=== PATIENT | female | born 2000 | race Two or more races ===

== ENCOUNTER 2019-06-30 20:07 | Emergency (ER) | payer OTHER, SELFPAY ==
--- NOTE | ~2019-06-30 | XR_ITS ---
EXAMINATION: XR ankle LT min 3V DATE: 06/30/2019 20:57 INDICATION: Left ankle pain and swelling. TECHNIQUE: 4 views of left ankle were obtained. COMPARISON: None. FINDINGS: Bone alignment is normal. No fracture. There is mild osteoarthritis of talonavicular joint. There is ankle soft tissue swelling. IMPRESSION: 1. Mild osteoarthritis of talonavicular joint. Reviewed, dictated and finalized at location A. INE ROOM ATTENDANT
[2019-06-30 20:09] VITALS: BP 137/75; PULSE 112; RESP 20; TEMP 36.7; O2SAT 100
--- NOTE | 2019-06-30 20:46 | ED.LOWEXIN ---
HPI - Extremity Injury (Lower) General Chief Complaint: Extremity Injury, Lower Stated Complaint: L ankle injury Time Seen by Provider: 06/30/19 20:41 Source: patient Mode of arrival: ambulatory Limitations: no limitations History of Present Illness HPI Narrative: This is a 18 year old female that presents to the ER for left ankle pain today. Is unsure of certain injury. Reports she noted some increasing swelling and pain on the lateral side of her ankle. She has been icing and using Epsom salt with little relief. Denies fever, decreased ROM, numbness, erythema or warmth. Related Data Allergies Allergy/AdvReac Type Severity Reaction Status Date / Time No Known Allergies Allergy Unverified 12/22/17 13:06 Review of Systems Review of Systems: Narrative: CONSTITUTIONAL: Denies fever SKIN: Denies rash MUSCULOSKELETAL: Reports joint pain, and myalgia. NEUROLOGIC: Denies numbness All systems reviewed & are unremarkable except as noted in HPI and below PMFSH Surgical History Surgical History (Updated 06/30/19 @ 20:51 by Kika Hand PA-C) History of Social History Social History (Updated 06/30/19 @ 20:50 by Kika Hand PA-C) Smoking status: Current every day smoker Exam Narrative: Exam Narrative: GENERAL: Well-appearing, well-nourished, and in no acute distress. HEAD: Normocephalic, atraumatic. EYES: EOMI. EXTREMITIES: Normal range of motion. Mild swelling about the left lateral malleoli. No erythema or warmth. Normal sensation. Normal DP pulses SKIN: Warm, dry, no rash. NEURO: No focal deficits. Alert and oriented x3. PSYCH: Normal mood and affect Course Vital Signs Vital signs: Vital Signs Temperature 98.1 F 06/30/19 20:09 Pulse Rate 112 H 06/30/19 20:09 Respiratory Rate 20 06/30/19 20:09 Blood Pressure 137/75 06/30/19 20:09 Pulse Oximetry 100 06/30/19 20:09 Temperature 98.1 F 06/30/19 20:09 Pulse Rate 112 H 06/30/19 20:09 Respiratory Rate 20 06/30/19 20:09 Blood Pressure 137/75 06/30/19 20:09 Pulse Oximetry 100 06/30/19 20:09 MDM - Extremity Injury (Lower) MDM Narrative Medical decision making narrative: Patient presents the emergency permit for left ankle pain. No known injury or trauma. Patient is afebrile. No erythema or warmth of the ankle. Left ankle x-rays without acute changes. Patient will be given an Joshua wrap, crutches and was instructed to ice and elevate the extremity. She is to take [id number] pain medication as needed. She is to follow-up with primary care doctor. She was given warnings to return to the ER Imaging Data Radiologist's impression: ITS Impressions Ankle X-Ray 06/30/19 21:07 IMPRESSION: 1. Mild osteoarthritis of talonavicular joint. Critical Care Time Critical Care Time Critical Care Time: No Discharge Plan Discharge Clinical Impression: Acute left ankle pain Patient Disposition: Home, Self-Care Condition: Stable Instructions: Ankle Sprain (ED) Additional Instructions: Return to the emergency department if you experience fever, redness and swelling of your leg, or any other symptoms that are concerning to you Wear JOSHUA wrap and use crutches. No weight on the affected leg until able to bear weight without pain. Ice and elevate extremity. Pain medication as needed and directed. Follow up with your doctor for further care. Follow-up/Referrals: PHYSICIAN,PIN PUSHER [Primary Care Provider] - Hollis Newman MD [Physician] - 1 Week
== END 2019-06-30 21:25 | disposition home or self-care (01) ==
PROVIDERS: Emergency Provider Emergency Medicine
DX: M25.572 Pain in left ankle and joints of left foot (principal); M19.072 Primary osteoarthritis, left ankle and foot; F17.200 Nicotine dependence, unspecified, uncomplicated
CPT/HCPCS: 73610; 99283

== ENCOUNTER 2019-08-04 10:35 | Emergency (ER) | payer OTHER, SELFPAY ==
--- NOTE | ~2019-08-04 | XR_ITS ---
XR abdomen/kub 1V 08/04/2019 11:46 INDICATION: Lower abdomen pain. TECHNIQUE: KUB COMPARISON: None FINDINGS: Bowel gas pattern is normal. There is no evidence of free air, mass, organomegaly, ascites or obstruction. No abnormal calculi are seen. The bones appear intact. IMPRESSION: 1: No acute abdominal abnormality identified. Reviewed, dictated and finalized at location A.
[2019-08-04 11:10] VITALS: BP 130/76; PULSE 95; RESP 20; TEMP 36.9; O2SAT 98
--- NOTE | 2019-08-04 11:16 | ED.GENADULT ---
HPI - General Adult General Chief complaint: Abdominal Pain Stated complaint: lower back pn/urine bleed/cramping Time Seen by Provider: 08/04/19 11:16 Source: patient Mode of arrival: ambulatory Limitations: no limitations History of Present Illness HPI narrative: 18-year-old female patient presents to the [facility] with complaints of low back pain and urinary symptoms. Patient states that she started having some low back pain about a week ago and is gotten increasingly worse and it radiates around the left flank to the left abdomen and down to the left groin. Patient denies any pain with urination. But states that when she did urinate today she did see some pink-tinged urine. Patient states that she thinks that might be her Implanon because she has been had it for about a year and a half but states she has had issues with that here and there. Patient denies any fevers, nausea, vomiting or diarrhea. Related Data Allergies Allergy/AdvReac Type Severity Reaction Status Date / Time No Known Allergies Allergy Unverified 12/22/17 13:06 Review of Systems Review of Systems: Narrative: CONSTITUTIONAL: Denies fever, chills, or sweats. EYES: Denies visual changes, redness, or discharge. ENT: Denies rhinorrhea, congestion, sore throat, or otalgia. CARDIOVASCULAR: Denies chest pain, palpitations, or edema. RESPIRATORY: Denies cough or dyspnea. GASTROINTESTINAL: Positive left flank and left abdominal pain, denies nausea, vomiting, or diarrhea. GENITOURINARY: Denies dysuria or hematuria. SKIN: Denies rash or itching. MUSCULOSKELETAL: Positive low back pain, denies joint pain, or myalgia. NEUROLOGIC: Denies headache, numbness, or weakness. PSYCHIATRIC: Denies anxiety or depression. PMFSH Surgical History Surgical History History of Social History Social History Smoking status: Current every day smoker Comments At the time of my signature I agree with nursing past medical history, surgical, social, and family history. There is no relevant family history pertinent to the presenting complaint. Exam Narrative: Exam Narrative: GENERAL: Well-appearing, well-nourished, and in no acute distress. HEAD: Normocephalic, atraumatic. EYES: PERRLA and EOMI. ENT: Nares clear, no rhinorrhea or epistaxis. Mucous membranes moist. NECK: Supple. No lymphadenopathy CHEST: Clear to auscultation. No respiratory distress. HEART: Regular rate and rhythm. No murmur heard. Normal peripheral pulses. ABDOMEN: Soft, flat, nondistended. No guarding, rebound tenderness, or rigid. No pulsatilla masses. Bowel sounds present in all four quadrants. No organomegaly. Negative Duval?s sign. No periumbicial tenderness. No Supra public tenderness or distension. Good femoral pulses bilaterally. No hernia noted. No scars or surface trauma. No CVA tenderness on percussion EXTREMITIES: Normal range of motion. No edema. SKIN: Warm, dry, no rash. NEURO: No focal deficits. Alert and oriented x3. Course Reevaluation(s) Reevaluation #1: Notify patient that her x-ray is negative for any obvious evidence of stones. Discussed with patient that her urine was really unremarkable for any UTI as well but however we will send the urine off to the lab for testing to make sure that there is no bacteria growing and if there is we will call her with antibiotics at that time. Discussed with patient that since she is really not having a lot of pain when she urinates I do not think that we need to start antibiotics at this time. Discussed with patient that her test was negative today. Discussed with her and asked her if she has tried anything for the pain. Patient states that she has not tried anything for her back pain yet. Discussed with her I would try to do some ibuprofen, Tylenol and maybe heating pad and see if this improves but she will need to follow-up with her
== END 2019-08-04 12:14 | disposition home or self-care (01) ==
PROVIDERS: Emergency Provider Nurse Practitioner Family
DX: M54.5 Low back pain (principal); F17.200 Nicotine dependence, unspecified, uncomplicated
CPT/HCPCS: 74018; 81003; 81025; 87086; 87088; 99213; G0463

== ENCOUNTER 2019-08-05 05:03 | Emergency (ER) | payer OTHER, SELFPAY ==
--- NOTE | ~2019-08-05 | CT_ITS ---
EXAMINATION: CT abdomen pelvis w con DATE: 08/05/2019 06:14 INDICATION: Left lower quadrant pain. Pain radiating to the left flank. Nausea and vomiting. TECHNIQUE: Computed tomography (CT) of the abdomen and pelvis was performed with 100 cc Omnipaque 350 intravenous contrast. The dose-length product was 1125.81 mGy-cm. Automated exposure control and ite rative reconstruction technique were employed. COMPARISON: None. FINDINGS: Lung bases are unremarkable. No significant pleural or pericardial effusion. Heart size is normal. No significant vascular abnormality. No lymphadenopathy. There is a 5.2 cm right ovarian cyst . Small amount of fluid in the endometrium. Normal appendix. Mildly enlarged mesenteric and ileocolic lymph nodes, suspicious for mesenteric adenitis. No signific ant vascular abnormality. No evidence for hernia. The liver, spleen, pancreas, adrenal glands and kidneys are unremarkable. Gallbladder is present. No free air or free fluid. No acute osseous abnormality. IMPRESSION: 1. 5.2 cm right adnexal cyst, likely ovarian. Endometrial thickening measuring 2.5 cm. 2: Mildly enlarged mesenteric and ileocolic lymph nodes. Consider mesenteric adenitis in the appropri ate clinical setting. Reviewed, dictated and finalized at location A. IMPRESSION: 1. 5.2 cm right adnexal cyst, likely ovarian. Endometrial thickening measuring 2.5 cm. 2: Mildly enlarged mesenteric and ileocolic lymph nodes. Consider mesenteric ad enitis in the appropriate clinical setting.
[2019-08-05 05:06] VITALS: BP 150/87; PULSE 136; RESP 16; TEMP 36.9; O2SAT 100
--- NOTE | 2019-08-05 05:17 | ED.ABDPAIN ---
HPI - Abdominal Pain General Chief Complaint: Abdominal Pain <Karina Nelson MD - Last Filed: 08/05/19 05:28> Stated Complaint: abd pain, pain w/ urination <Karina Nelson MD - Last Filed: 08/05/19 05:28> Time Seen by Provider: 08/05/19 05:07 <Karina Nelson MD - Last Filed: 08/05/19 05:28> Source: patient <Karina Nelson MD - Last Filed: 08/05/19 05:28> Mode of arrival: ambulatory <Karina Nelson MD - Last Filed: 08/05/19 05:28> History of Present Illness HPI narrative: Patient is a 18-year-old female who presents to the emergency department with complaint of left lower quadrant abdominal pain. Patient reports onset of symptoms 1 week ago. Patient states the symptoms were worse this morning. Patient had an episode of nausea and vomiting this morning as well as diaphoresis. Patient has noted pressure with urination and urinary frequency. She denies any dysuria or hematuria. Patient started her menstrual period this morning. Patient was seen in urgent care yesterday and told she may have a kidney stone. Urinalysis showed trace blood. KUB was unremarkable for any obvious kidney stones. <Karina Nelson MD - Last Filed: 08/05/19 05:28> MD elicited complaint: abdominal pain <Karina Nelson MD - Last Filed: 08/05/19 05:28> Onset (ago): week(s) (1) <Karina Nelson MD - Last Filed: 08/05/19 05:28> Pain Consistency: constant <Karina Nelson MD - Last Filed: 08/05/19 05:28> Location: [facility] <Karina Nelson MD - Last Filed: 08/05/19 05:28> Quality: sharp <Karina Nelson MD - Last Filed: 08/05/19 05:28> Associated symptoms: nausea and vomiting <Karina Nelson MD - Last Filed: 08/05/19 05:28> Related Data Date of Last Menstrual Period: 08/05/19 <Karina Nelson MD - Last Filed: 08/05/19 05:28> Allergies/Adverse Reactions: Allergies Allergy/AdvReac Type Severity Reaction Status Date / Time No Known Allergies Allergy Unverified 12/22/17 13:06 <Karina Nelson MD - Last Filed: 08/05/19 05:28> Review of Systems Review of Systems: All systems reviewed & are unremarkable except as noted in HPI and below <Karina Nelson MD - Last Filed: 08/05/19 05:28> Constitutional: Constitutional: Reports excessive sweating <Karina Nelson MD - Last Filed: 08/05/19 05:28> Gastrointestinal: Gastrointestinal: Reports abdominal pain, Reports nausea and Reports vomiting <Karina Nelson MD - Last Filed: 08/05/19 05:28> Genitourinary: Genitourinary: Denies hematuria, Reports nocturia and Denies dysuria <Karina Nelson MD - Last Filed: 08/05/19 05:28> Musculoskeletal: Musculoskeletal: Reports back pain <Karina Nelson MD - Last Filed: 08/05/19 05:28> Neurologic: Reports dizziness <Karina Nelson MD - Last Filed: 08/05/19 05:28> [facility] Past Medical History Medical History: Medical History (Updated 08/05/19 @ 07:34 by Sean Davenport DO) Anemia <Karina Nelson MD - Last Filed: 08/05/19 05:28> Surgical History Surgical History: Surgical History History of <Karina Nelson MD - Last Filed: 08/05/19 05:28> Social History Social History: Social History (Updated 08/05/19 @ 05:27 by Karina Nelson MD) Additional smoking assessment comments: stopped smoking 2 days ago Gender identity (if verbalized by the patient): Female <Karina Nelson MD - Last Filed: 08/05/19 05:28> Exam Const: General: cooperative, no acute distress, alert and diaphoretic <Karina Nelson MD - Last Filed: 08/05/19 05:28> Nutritional Appearance: well nourished <Karina Nelson MD - Last Filed: 08/05/19 05:28> Orientation/consciousness: patient oriented x3 <Karina Nelson MD - Last Filed: 08/05/19 05:28> Limitations: no limitations <Jan
[2019-08-05 05:31] LABS: Basophils Percent Auto 0.3 % (0.2-1.2); Eosinophils Percent Auto 0.3 % (0-4.4); Hemoglobin 12.1 g/dL (12.0-15.0); Immature Granulocyte Absolute 0.01 K/mm3 (0.00-0.031); Immature Granulocyte Percent A 0.3 % (0-0.5); Lymphocytes Absolute Auto 1.64 K/mm3 (0.9-3.2); Lymphocytes Percent Auto 52.6 % (18.3-44.2); Mean Corpuscular HGB Conc 31.8 g/dl (32-36); Mean Corpuscular Hemoglobin 24.4 pg (26-34); Mean Corpuscular Volume 76.6 fl (80-100); Mean Platelet Volume 11.3 fl (7.4-10.4); Monocytes Absolute Auto 0.3 K/mm3 (0.1-0.6); Monocytes Percent Auto 10.9 % (2.6-8.5); Neutrophils Absolute Auto 1.1 K/mm3 (1.3-6.7); Neutrophils Percent Auto 35.6 % (45.5-73.1); Platelet Count Result 222 k/mm3 (150-375); Red Blood Count 4.96 M/mm3 (4.2-5.4); White Blood Count 3.1 K/mm3 (4.5-10.0)
[2019-08-05 05:37] LABS: Add Urine Microscopic? YES; Appearance Urine Clear (Clear); Bacteria Urine Trace /hpf; Bilirubin Urine Negative (Negative); Blood Urine Negative (Negative); Color Urine Yellow (Yellow); Glucose Urine UA Negative (Negative); Ketones Urine 1+ mg/dL (Negative); Leukocyte Esterase Ur Negative LEU/UL (Negative); Mucus Urine Heavy /lpf; Nitrate Urine Negative (Negative); Protein Urine 2+ mg/dL (Negative); RBC Urine 0-2 /hpf (0-2); Squamous Epithelial Cell Urine Few /hpf (Few); Urobilinogen Urine Negative mg/dL (<2.0)
[2019-08-05 05:41] LABS: Alanine Aminotransferase 15 U/L (4-35); Albumin Level 4.8 g/dL (3.7-5.6); Alkaline Phosphatase 111 U/L (45-116); Aspartate Amino Transferase 27 U/L (14-36); Bilirubin,Total 0.3 mg/dL (0.2-1.3); Blood Urea Nitrogen 10 mg/dL (8-21); Calcium 8.7 mg/dL (8.9-10.7); Carbon Dioxide 18 mmol/L (22-30); Chloride 106 mmol/L (98-107); Estimated Glomerular Filt Rate > 60; Glucose 102 mg/dL (65-105); Lipase 342 U/L (23-300); Potassium 3.3 mmol/L (3.4-5.0); Sodium 138 mmol/L (134-143)
[2019-08-05 05:54] LABS: Specific Grav Ur 1.031 (1.001-1.035)
[2019-08-05] MEDS: LACTATED RINGERS 1,000 ML 999 ML IV CONT ×2 (06:02→06:31)
[2019-08-05 07:06] VITALS: BP 142/74; PULSE 89; RESP 16; O2SAT 100
[2019-08-05] MEDS: POTASSIUM CHLORIDE 20 MEQ TABLET PO (07:39)
[2019-08-05 08:30] VITALS: BP 133/81; PULSE 94; RESP 16
== END 2019-08-05 08:30 | disposition home or self-care (01) ==
PROVIDERS: Emergency Medicine; Emergency Provider Emergency Medicine
DX: R10.32 Left lower quadrant pain (principal); R11.2 Nausea with vomiting, unspecified; N83.201 Unspecified ovarian cyst, right side; Z86.2 Personal history of diseases of the blood and blood-forming organs and certain disorders involving the immune mechanism
CPT/HCPCS: 36415; 74177; 80053; 81001; 81025; 83690; 85025; 96360; 96361; 99284; A9270; J7120; Q9967

== ENCOUNTER 2019-09-09 10:15 | Outpatient (CLI) | payer OTHER, SELFPAY ==
[2019-09-09 11:23] LABS: Beta HCG Quantitative < 2.39 mIU/ML
== END 2019-09-09 10:16 | disposition home or self-care (01) ==
PROVIDERS: Visit Provider Student in an Organized Health Care Education/Training Program
DX: Z30.430 Encounter for insertion of intrauterine contraceptive device (principal)
CPT/HCPCS: 36415; 84702

== ENCOUNTER 2019-11-05 08:35 | Emergency (ER) | payer OTHER, SELFPAY ==
--- NOTE | ~2019-11-05 | XR_ITS ---
EXAMINATION: XR hand LT min 3V DATE: 11/05/2019 09:00 INDICATION: Left hand pain after punching a door one day prior TECHNIQUE: Posteroanterior, oblique and lateral views of the left hand were obtained. COMPARISON: None. FINDINGS: Minimally displaced fracture at the neck of the left fifth metacarpal with approximately 40 degree pa lmar/radial angulation. The fracture extends to near but does not appear to involve the distal articu lar surface. No other fractures identified. Joint spaces are normal. IMPRESSION: 1. Angulated minimally displaced extra articular fracture at the neck of the left fifth metacarpal, boxer's fracture. Reviewed, dictated and finalized at location A. IMPRESSION: 1. Angulated minimally displaced extra articular fracture at the neck of the le ft fifth metacarpal, boxer's fracture.
--- NOTE | ~2019-11-05 | XR_ITS ---
EXAMINATION: XR finger 1st RT min 2V DATE: 11/05/2019 09:00 INDICATION: Pain at the right first metacarpophalangeal joint post punching a wall TECHNIQUE: Dorsal palmar, lateral and oblique views of the right first digit were obtained COMPARISON: None FINDINGS: Alignment is normal. No fracture. Joint spaces are normal. Mild soft tissue swelling overlying the ri ght first metacarpal and metacarpophalangeal joint. IMPRESSION: 1. No osseous abnormality. Reviewed, dictated and finalized at location A. IMPRESSION: 1. No osseous abnormality.
[2019-11-05 08:44] VITALS: BP 133/79; PULSE 95; RESP 20; TEMP 36.7; O2SAT 100
--- NOTE | 2019-11-05 09:10 | ED.UPPEXIN ---
HPI - Extremity Injury (Upper) General Chief Complaint: Extremity Injury, Upper Stated Complaint: left hand injury Time Seen by Provider: 11/05/19 08:51 Source: patient and RN notes reviewed Mode of arrival: ambulatory Limitations: no limitations History of Present Illness HPI narrative: Patient presents today complaining of pain to her left hand and right thumb. While intoxicated last night, she punched a metal door with both hands. Denies numbness or tingling in the right hand. Reports some numbness to the dorsum of the left hand overlying the fifth metacarpal. Currently rates her pain 5/10 and has been taking Tylenol without relief. MD complaint: injury to: left, right and hand Related Data Home Medications Medication Instructions Recorded Confirmed ferrous sulfate [Iron (ferrous 325 mg PO DAILY 11/05/19 11/05/19 sulfate)] levonorgestrel [Mirena] 1 device INTRAUTERINE ONCE 11/05/19 11/05/19 Allergies Allergy/AdvReac Type Severity Reaction Status Date / Time No Known Allergies Allergy Verified 11/05/19 08:50 Review of Systems Review of Systems: Narrative: CONSTITUTIONAL: Denies body aches, fever, chills, or sweats. EYES: Denies visual changes, redness, or discharge. ENT: Denies rhinorrhea, congestion, sore throat, or otalgia. CARDIOVASCULAR: Denies chest pain, palpitations, or edema. RESPIRATORY: Denies cough or dyspnea. GASTROINTESTINAL: Denies abdominal pain, nausea, vomiting, or diarrhea. GENITOURINARY: Denies dysuria or hematuria. SKIN: Denies rash, itching, or wounds. MUSCULOSKELETAL: Denies back pain, or myalgia. + Bilateral hand injury NEUROLOGIC: Denies headache, numbness, tingling, or weakness. PSYCH: Denies depression or anxiety. [facility] Surgical History Surgical History History of Social History Social History (Updated 08/15/19 @ 13:14 by Luisana Leggett CMA) Additional smoking assessment comments: stopped smoking 2 days ago Substance use: current Substance use type: marijuana Gender identity (if verbalized by the patient): Female Comments At time of signature, I have reviewed and agree with nursing past medical, surgical, social and family history unless otherwise noted. Please see nursing chart for further information. There is no relevant family history pertinent to the presenting complaint Exam Narrative: Exam Narrative: GENERAL: Well-appearing, well-nourished, and in no acute distress. HEAD: Normocephalic, atraumatic. EYES: EOMI. No redness or drainage. Conjunctivae normal. ENT: Mucous membranes pink and moist. NECK: Normal AROM. CHEST: No respiratory distress. EXTREMITIES: Right hand: Tenderness and mild edema to the base of the thumb, dorsal aspect. Mild ecchymosis to the thenar eminence. Distal sensation intact. Capillary refill normal. Full AROM with increased pain mildly. Left hand: moderate edema overlying the fifth metacarpal with moderate ecchymosis to the palmar aspect of the fifth metacarpal. Distal sensation intact. Capillary refill normal. Decreased AROM of the fifth finger due to pain and swelling. SKIN: Warm, dry, no rash. Capillary refill normal. Normal skin turgor. NEURO: No focal deficits. Alert and oriented x3. Gait steady. PSYCH: Normal affect. No signs of depression or anxiety. Course Vital Signs Vital signs: Vital Signs Temperature 98.1 F 11/05/19 08:44 Pulse Rate 95 11/05/19 08:44 Respiratory Rate 20 11/05/19 08:44 Blood Pressure 133/79 11/05/19 08:44 Pulse Oximetry 100 11/05/19 08:44 Temperature 98.1 F 11/05/19 08:44 Pulse Rate 95 11/05/19 08:44 Respiratory Rate 20 11/05/19 08:44 Blood Pressure 133/79 11/05/19 08:44 Pulse Oximetry 100 11/05/19 08:44 Reviewed. Pt has been instructed to follow up with her PCP regarding her elevated blood pressure today. Procedures Orthopedic Splinting/Casting Injury #1: Splinting/Cast
== END 2019-11-05 09:20 | disposition home or self-care (01) ==
PROVIDERS: Emergency Provider Nurse Practitioner
DX: S62.337A Displaced fracture of neck of fifth metacarpal bone, left hand, initial encounter for closed fracture (principal); M79.644 Pain in right finger(s); R03.0 Elevated blood-pressure reading, without diagnosis of hypertension; W22.8XXA Striking against or struck by other objects, initial encounter
CPT/HCPCS: 29125; 73130; 73140; 99214; G0463